=== PATIENT | male | born 2000 | race Caucasian/White ===

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

== ENCOUNTER 2019-05-10 11:04 | Emergency (ER) | payer OTHER ==
[~2019-05-10] VITALS: Ht 167.6 cm; Wt 63.5 kg
[2019-05-10] MEDS ORDERED: HYDR1TAB94 PO (12:18)
[2019-05-10] MEDS ORDERED: MOTRIN IB200 MG PO (12:18)
== END 2019-05-10 12:45 | disposition home or self-care (01) ==
LOC: ER 11:04
DX: S42.212A Unspecified displaced fracture of surgical neck of left humerus, initial encounter for closed fracture (principal); V00.131A Fall from skateboard, initial encounter; Z88.8 Allergy status to other drugs, medicaments and biological substances; Z87.891 Personal history of nicotine dependence
CPT/HCPCS: 29105; 73030; 99283-25; A9270-GY

== ENCOUNTER 2022-03-27 21:12 | Emergency (ER) | payer OTHER ==
[~2022-03-27 21:12] MED LIST changes: +HYDR1TAB94 PO; +MOTRIN IB200 MG PO
== END 2022-03-28 00:30 | disposition left against medical advice (07) ==
DX: N50.811 Right testicular pain (principal); Z53.21 Procedure and treatment not carried out due to patient leaving prior to being seen by health care provider